=== PATIENT | male | born 1955 | race Caucasian/White ===

== ENCOUNTER 2017-01-20 20:51 | Emergency (ER) | payer BC ==
[~2017-01-20 20:51] MED LIST: Sodium Chloride Irrig Solution 250 ML BOT ONE
== END 2017-01-20 21:30 | disposition home or self-care (01) ==
LOC: MADERS 20:51
DX: S01.01XA Laceration without foreign body of scalp, initial encounter (principal); F17.210 Nicotine dependence, cigarettes, uncomplicated; I25.2 Old myocardial infarction; E78.00 Pure hypercholesterolemia, unspecified; Z79.82 Long term (current) use of aspirin; Z79.899 Other long term (current) drug therapy; W22.8XXA Striking against or struck by other objects, initial encounter
CPT/HCPCS: 99283